=== PATIENT | male | born 1965 | race Two or more races ===

== ENCOUNTER 2019-08-09 18:56 | Emergency (ER) | payer MEDICAID ==
[~2019-08-09] VITALS: Ht 170.2 cm; Wt 72.6 kg
[2019-08-09 19:12] VITALS: BP 138/86
--- NOTE | 2019-08-09 19:15 | NUR ---
ED Nurse Note: PT MAXINE FROM [facility] DUE TO DIARRHEA X 2DAYS. HAS HX OF HTN, STEMI STROKE, TX. aLERT AND ORIENTED, VERBALLY RESPONSIVE. BRAETHING EVEN AND UNLABORED. VSS. AFEBRILE.
[2019-08-09 19:49] LABS: APPEARANCE,URINE CLEAR; BILIRUBIN, URINE NEGATIVE (NEGATIVE); GLUCOSE, URINE (UA) NEGATIVE (NEGATIVE); KETONES,URINE NEGATIVE (NEGATIVE); LEUKOCYTE ESTERASE ,URINE 1+ (NEGATIVE); NITRITE,URINE NEGATIVE (NEGATIVE); PH,URINE 8 (4.5-8.0); PROTEIN,URINE 1+ (NEGATIVE); UROBILINOGEN,URINE NORMAL MG/DL (0.0-1.0)
[2019-08-09 19:51] LABS: COLOR,URINE YELLOW; EOSINOPHILS % (AUTO) 2.1 % (0.0-3.0); HEMATOCRIT 41.5 % (42.0-52.0); HEMOGLOBIN 15.2 G/DL (14.2-18.0); LYMPHOCYTES % (AUTO) 34.9 % (20.0-45.0); MEAN CORPUSCULAR VOLUME 86 FL (80-99); MONOCYTES % (AUTO) 7.1 % (1.0-10.0); NEUTROPHILS % (AUTO) 54.9 % (45.0-75.0); PLATELET COUNT 232 K/UL (150-450); RED BLOOD COUNT 4.84 M/UL (4.70-6.10); WHITE BLOOD COUNT 9.7 K/UL (4.8-10.8)
[2019-08-09 20:07] LABS: ANION GAP 10 mmol/L (5-15); BLOOD UREA NITROGEN 12 mg/dL (7-18); CALCIUM 10.1 MG/DL (8.5-10.1); CARBON DIOXIDE 29 MMOL/L (21-32); CHLORIDE 105 MMOL/L (98-107); CREATININE 1.1 MG/DL (0.55-1.30); POTASSIUM 3.4 MMOL/L (3.5-5.1); SODIUM 144 MMOL/L (136-145)
[2019-08-09 20:13] LABS: ALANINE AMINOTRANSFERASE 18 U/L (12-78); ALBUMIN 3.9 G/DL (3.4-5.0); ALBUMIN/GLOBULIN RATIO 0.8 (1.0-2.7); ALKALINE PHOSPHATASE 71 U/L (46-116); ASPARTATE AMINO TRANSFERASE 16 U/L (15-37); BILIRUBIN,TOTAL 0.8 MG/DL (0.2-1.0)
--- NOTE | 2019-08-09 20:44 | Emergency Room Report ---
History of Present Illness General Chief Complaint: Diarrhea Source: Medical Record Present Illness HPI 53-year-old male with history of hypertension and unknown psychiatric disorder brought in by paramedics complaining of 2 days of diarrhea. Patient is brought in by paramedics from group home facility. Denies recent travel, fever and chills, abdominal pain, nausea vomiting. Complains of 3 bouts of non-bloody diarrhea yesterday and one bout of nonbloody diarrhea today. Patient reports that he has been able to intake oral hydration and a good diet. Sitting comfortably with normal vital signs. Denies chest pain, shortness of breath, palpitation, any recent medication change, urinary symptoms. Allergies: Coded Allergies: No Known Allergies (Unverified , 08/09/19) Patient History Past Medical History: see triage record Past Surgical History: unable to obtain Pertinent Family History: none Immunizations: UTD Reviewed Nursing Documentation: PMH: Agreed; PSxH: Agreed Nursing Documentation-PMH Past Medical History: No History, Except For Hx Hypertension: Yes Review of Systems All Other Systems: negative except mentioned in HPI Physical Exam Vital Signs Date Time Temp Pulse Resp B/P (MAP) Pulse Ox O2 Delivery O2 Flow Rate FiO2 08/09/19 19:03 99.0 80 18 138/86 (103) 98 Room Air Sp02 EP Interpretation: reviewed, normal General Appearance: no apparent distress, alert, GCS 15, non-toxic Head: normocephalic, atraumatic Eyes: bilateral eye normal inspection, bilateral eye PERRL ENT: hearing grossly normal, normal pharynx, no angioedema, normal voice Neck: full range of motion, supple/symm/no masses Respiratory: chest non-tender, lungs clear, normal breath sounds, no rhonchi, speaking full sentences Cardiovascular #1: regular rate, rhythm, no edema, no murmur Gastrointestinal: normal bowel sounds, non tender, soft, non-distended, no guarding, no rebound Rectal: deferred Genitourinary: normal inspection, no CVA tenderness Musculoskeletal: back normal, gait/station normal, normal range of motion, non- tender Neurologic: alert, oriented x3, responsive, motor strength/tone normal, sensory intact, speech normal Psychiatric: judgement/insight normal, memory normal, mood/affect normal, no suicidal/homicidal ideation Skin: no rash Lymphatic: no adenopathy Medical Decision Making PA Attestation All my diagnosis and treatment plans were reviewed ad discussed with my supervising physician Dr. Lombardi Diagnostic Impression: Primary Impression: Diarrhea Additional Impression: Gastroenteritis ER Course 53-year-old male with history of hypertension and unknown psychiatric disorder brought in by paramedics complaining of 2 days of diarrhea. Patient is brought in by paramedics from group home facility. Denies recent travel, fever and chills, abdominal pain, nausea vomiting. Complains of 3 bouts of non-bloody diarrhea yesterday and one bout of nonbloody diarrhea today. Patient reports that he has been able to intake oral hydration and a good diet. Sitting comfortably with normal vital signs. Denies chest pain, shortness of breath, palpitation, any recent medication change, urinary symptoms. Ddx considered but are not limited to: Viral gastroenteritis, bacterial gastroenteritis, diarrhea secondary to medication, Vital signs: are WNL, pt. is afebrile H&PE are most consistent with: Diarrhea, viral gastroenteritis ORDERS: No abdominal imaging is needed due to abdomen being nonrigid patient not guarding. CBC, CMP, UA ED INTERVENTIONS: NS bolus DISCHARGE: At this time pt. is stable for d/c to home. Will provide printed patient care instructions, and any necessary prescriptions. Care plan and follow up instructions have been discussed with the patient prior to discharge. Patient to follow-up with her primary care provider worsening symptoms return to the emergency room EKG Diagnostic Results Rate: normal Rhythm: NSR ST Segments: no acute changes Other Impression No acute ST changes Last Vital Signs Date Time Temp Pulse Resp B/P (MAP) Pulse Ox O2 Delivery O2 Flow Rate FiO2 08/09/19 19:12 99.0 71 18 138/86 98 Room Air Disposition: HOME, SELF-CARE Condition: Stable Referrals: BILLY LOPEZ,REFERRING (PCP) Patient Instructions: Diarrhea, Adult Additional Instructions: At this time no sign of infection noted increase her oral hydration keep BRAT diet consisted of banana, rice, applesauce, piece of toast. If worsening symptoms, fever and chills return to the emergency room. Reena Gomes Aug 09, 2019 20:44
[2019-08-09 21:39] VITALS: BP 130/77
[2019-08-09 22:13] VITALS: BP 130/77
--- NOTE | 2019-08-09 22:13 | NUR ---
ED Nurse Note: Pt cleared by ERMD for discharge. DC instructions/prescription was given and explained to pt and verbalized understanding of teachings. All medical deviecs such as ID band andf IV line removed. Pt is AAO x4, ambulatory and left with all personal belongings. Picked up by 2 EMT via wen.
--- NOTE | 2019-08-11 13:10 | Cardiology Report ---
APPROVED REPORT EKG Measurement Heart [id number] Normal sinus rhythm Normal ECG
== END 2019-08-09 22:13 | disposition home or self-care (01) ==
LOC: EDBD 18:56 → EMR 19:15
DX: K52.9 Noninfective gastroenteritis and colitis, unspecified (principal); I10 Essential (primary) hypertension
CPT/HCPCS: 36415; 80053; 81001; 85025; 93005; 96360; Z7502; 99284